=== PATIENT | male | born 1960 | race Caucasian/White ===

== ENCOUNTER 2021-05-19 17:29 | Emergency (ER) | payer MEDICAID ==
[~2021-05-19] VITALS: Ht 162.6 cm; Wt 79.4 kg
[2021-05-19 17:38] VITALS: BP 125/76
--- NOTE | 2021-05-19 17:40 | NUR ---
Pt ambulated to bed 12 with steady/even gait.
--- NOTE | 2021-05-19 17:41 | NUR ---
61 y/o M ALINA from [facility] c/o chest pain x 1 week. Patient A&Ox4, ambulatory, seen at [facility] recently for similar episodes and discharged home to monitor. Pt states 7/10, pressure/intermittent pain to left-side of chest and epigastric region per EMS. Pt states SOB at this time, SpO2 97% on room air. Patient unable to verbalize what was completed at [facility] upon discharge 2 days ago. Denies headache, N/V/D, headache, blurry vision. Pt placed onto monitoring manager. Bed locked in lowest position, side rails x 2. Pt full code. Denies meds prior to arrival. PMH: schizophrenia, HTN Meds: amlodipine, "saphris" NKDA
--- NOTE | 2021-05-19 18:05 | NUR ---
Dr. Hawkins is evaluating patient at bedside
--- NOTE | 2021-05-19 18:11 | NUR ---
Lab at bedside
--- NOTE | 2021-05-19 18:45 | NUR ---
Patient calling for nurse and states feeling SOB. SpO2 98% on room air. All pt needs met.
[2021-05-19 18:51] LABS: BASOPHILS % (AUTO) 0.7 % (0.0-2.0); EOSINOPHILS # (AUTO) 0.1 K/uL (0-0.4); EOSINOPHILS % (AUTO) 1.8 % (0.0-4.0); HEMATOCRIT 37.3 % (36-52); LYMPHOCYTES # (AUTO) 1.4 K/uL (2.0-11.5); MEAN CORPUSCULAR HEMOGLOBIN 32 pg (27-31); MEAN CORPUSCULAR HGB CONC 35 g/dL (33-37); MEAN CORPUSCULAR VOLUME 92.1 fL (80-94); MONOCYTES # (AUTO) 0.4 K/uL (0.8-1.0); NEUTROPHILS # (AUTO) 3.5 K/uL (1.8-7.7); NEUTROPHILS % (AUTO) 63.5 % (42.2-75.2); PLATELET COUNT (AUTO) 153 K/uL (140-450); RED BLOOD CELL COUNT(AUTO) 4.05 MIL/uL (4.20-6.10); RED CELL DISTRIBUTION WIDTH 13.8 % (11.6-13.7); WHITE BLOOD COUNT (AUTO) 5.5 K/uL (4.8-10.8)
[2021-05-19 19:09] LABS: ALBUMIN 3.9 g/dL (3.4-5.0); ANION GAP 10.1 (8-16); CREATININE 0.7 mg/dL (0.6-1.3); POTASSIUM 3.1 mmol/L (3.5-5.1); TOTAL BILIRUBIN 0.6 mg/dL (0.0-1.0)
--- NOTE | 2021-05-19 19:12 | NUR ---
Patient requesting for a sitter to be at bedside stating "I need someone to be with me at this time." Reassured patient will be routinely checked on. Patient states "Ok."
--- NOTE | 2021-05-19 19:28 | NUR ---
Report and transfer of care endorsed to REGINALD Richardson
--- NOTE | 2021-05-19 19:30 | NUR ---
pt is awake and alert. vss. pt is in stable condition. pt calls out for nurse and doctor often, states he is uncomfortable and wants someone to sit by him. pt reassured. all needs met at this time.
--- NOTE | 2021-05-19 20:10 | NUR ---
PT CONTINUES TO GET OUT OF BED, STATES HE JUST WANTS TO STAND FOR A MOMENT.
--- NOTE | 2021-05-19 22:08 | NUR ---
PT IS AWAKE AND ALERT, LAYING BACK IN BED. VSS. PT IS IN STABLE CONDITION, ALL NEEDS MET AT THIS TIME.
[2021-05-19] MEDS ORDERED: POTASSIUM CHLORIDE 10 MEQ TABER PO ONE (23:20)
--- NOTE | 2021-05-20 01:38 | NUR ---
PT APPEARS TO BE SLEEPING, EYES ARE CLOSED, OPENS TO SOUNDS. EQUAL RISE AND FALL OF CHEST WALL. VSS. PT IS IN STABLE CONDITION. BED LOCKED IN LOWEST POSITION, SIDE RAILS X2.
--- NOTE | 2021-05-20 06:27 | NUR ---
PT GIVEN URINAL.
--- NOTE | 2021-05-20 07:17 | NUR ---
REPORT GIVEN TO REGINALD DANG. TRANSFER OF CARE AT THIS TIME.
--- NOTE | 2021-05-20 07:17 | NUR ---
REPORT RECEIVED FROM JAYLA MONTELONGO FOR CONTINUITY OF CARE.
--- NOTE | 2021-05-20 07:17 | NUR ---
REPORT RECEIVED FROM JAYLA MONTELONGO FOR CONTINUITY OF CARE.
--- NOTE | 2021-05-20 07:35 | NUR ---
Pt report given to DEBORAH MONTELONGO. Transfer of care at this time.
--- NOTE | 2021-05-20 09:49 | NUR ---
PT AMBULATED TO RESTROOM, STEADY GAIT
--- NOTE | 2021-05-20 09:52 | NUR ---
CALLED [facility], SPOKE WITH ANGELIQUE MADE AWARE PT WILL BE DISCHARGED TO BE FACILITY.
[2021-05-20 09:56] VITALS: BP 111/80
--- NOTE | 2021-05-20 09:56 | NUR ---
Patient discharged with v/s stable. Written and verbal after care instructions given and explained. Patient alert, oriented and verbalized understanding of instructions. Ambulance Transport with to shelter. All questions addressed prior to discharge. ID band removed. Patient advised to follow up with PMD. Opportunity to ask questions provided and answered.
== END 2021-05-20 09:56 | disposition home or self-care (01) ==
LOC: MED 17:29
DX: R07.89 Other chest pain (principal); E87.6 Hypokalemia; I10 Essential (primary) hypertension; F20.9 Schizophrenia, unspecified
CPT/HCPCS: 36415; 71045; 80053; 84484; 85025; 93005; 99285; Q0092

== ENCOUNTER 2021-06-10 16:07 | Emergency (ER) | payer MEDICAID ==
[~2021-06-10] VITALS: Ht 167.6 cm; Wt 73.9 kg
[2021-06-10 17:05] VITALS: BP 141/82
[2021-06-10 18:55] LABS: BASOPHILS % (AUTO) 0.7 % (0.0-2.0); EOSINOPHILS % (AUTO) 0.8 % (0.0-4.0); HEMATOCRIT 39.5 % (36-52); HEMOGLOBIN 13.6 g/dL (12.0-18.0); LYMPHOCYTES # (AUTO) 0.4 K/uL (2.0-11.5); LYMPHOCYTES % (AUTO) 6.7 % (20.5-51.1); MEAN CORPUSCULAR HEMOGLOBIN 32 pg (27-31); MEAN CORPUSCULAR HGB CONC 35 g/dL (33-37); MEAN CORPUSCULAR VOLUME 93.4 fL (80-94); MONOCYTES # (AUTO) 0.5 K/uL (0.8-1.0); MONOCYTES % (AUTO) 8.2 % (1.7-9.3); NEUTROPHILS # (AUTO) 4.9 K/uL (1.8-7.7); NEUTROPHILS % (AUTO) 83.6 % (42.2-75.2); PLATELET COUNT (AUTO) 142 K/uL (140-450); RED BLOOD CELL COUNT(AUTO) 4.23 MIL/uL (4.20-6.10); RED CELL DISTRIBUTION WIDTH 14.6 % (11.6-13.7); WHITE BLOOD COUNT (AUTO) 5.9 K/uL (4.8-10.8)
[2021-06-10 19:06] LABS: ANION GAP 12.7 (8-16); CARBON DIOXIDE 27.6 mmol/L (21-32); CREATININE 0.7 mg/dL (0.6-1.3); POTASSIUM 3.3 mmol/L (3.5-5.1)
[2021-06-10] MEDS ORDERED: POTASSIUM CHLORIDE 20% 40 MEQ/15 ML UDC PO SCH (19:30)
[2021-06-10 21:34] VITALS: BP 141/82
--- NOTE | 2021-06-10 21:34 | NUR ---
Patient discharged with v/s stable. Written and verbal after care instructions given and explained. Patient verbalized understanding. Ambulatory with steady gait. All questions addressed prior to discharge. Advised to follow up with PMD.
== END 2021-06-10 21:34 ==
LOC: MED 16:07
DX: R42 Dizziness and giddiness (principal); R07.9 Chest pain, unspecified; I10 Essential (primary) hypertension
CPT/HCPCS: 36415; 71045; 80048; 83880; 84484; 85025; 93005; 99285

== ENCOUNTER 2021-06-21 00:22 | Emergency (ER) | payer MEDICAID ==
[~2021-06-21] VITALS: Ht 167.6 cm; Wt 68.0 kg
[2021-06-21 00:29] VITALS: BP 116/79
--- NOTE | 2021-06-21 00:31 | NUR ---
PT SENT TO LOBBY TO WAIT FOR MSE.
[2021-06-21] MEDS ORDERED: LORazepam 1 MG TAB PO ONE (01:10)
--- NOTE | 2021-06-21 01:12 | NUR ---
PT ALINA FROM [facility] FOR ANXIETY AND PT C/O SOB SINCE THIS AM. PT HAS NO SIGNS OF RESPIRATORY DISTRESS AT THIS TIME. PT STATES "I CAN'T BREATHE." O2 SATURATION IS 98% ON ROOM AIR. RR 18 REGULAR, NON LABORED.
[2021-06-21 01:28] LABS: BASOPHILS % (AUTO) 0.3 % (0.0-2.0); EOSINOPHILS % (AUTO) 0.1 % (0.0-4.0); HEMATOCRIT 36.8 % (36-52); HEMOGLOBIN 12.9 g/dL (12.0-18.0); LYMPHOCYTES % (AUTO) 25.9 % (20.5-51.1); MEAN CORPUSCULAR HEMOGLOBIN 32 pg (27-31); MEAN CORPUSCULAR HGB CONC 35 g/dL (33-37); MEAN CORPUSCULAR VOLUME 91.6 fL (80-94); MONOCYTES # (AUTO) 0.3 K/uL (0.8-1.0); MONOCYTES % (AUTO) 7.6 % (1.7-9.3); NEUTROPHILS # (AUTO) 2.7 K/uL (1.8-7.7); NEUTROPHILS % (AUTO) 66.1 % (42.2-75.2); PLATELET COUNT (AUTO) 148 K/uL (140-450); RED BLOOD CELL COUNT(AUTO) 4.02 MIL/uL (4.20-6.10)
--- NOTE | 2021-06-21 01:37 | NUR ---
PT RETURN FROM RAD TO ER [facility]
--- NOTE | 2021-06-21 01:37 | NUR ---
Lobo shabazz in [facility] - 06/21/21 at 0137 by EDI PT RETURN FROM CT TO ER [facility]
[2021-06-21 02:28] LABS: ALBUMIN 3.5 g/dL (3.4-5.0); ANION GAP 13.4 (8-16); CARBON DIOXIDE 28.7 mmol/L (21-32); CREATININE 0.9 mg/dL (0.6-1.3); POTASSIUM 3.1 mmol/L (3.5-5.1); TOTAL BILIRUBIN 1.5 mg/dL (0.0-1.0)
[2021-06-21] MEDS ORDERED: POTASSIUM CHLORIDE 10 MEQ TABER PO ONE ×2 (03:00→04:08)
--- NOTE | 2021-06-21 05:13 | NUR ---
Patient discharged with v/s stable. Written and verbal after care instructions given and explained. Patient alert, oriented and verbalized understanding of instructions. Ambulatory with steady gait. All questions addressed prior to discharge. ID band removed. Patient advised to follow up with PMD. NO Rx given. Patient educated on indication of medication including possible reaction and side effects. Opportunity to ask questions provided and answered. REPORT GIVEN TO SRINIVASA. PT SENT BACK IN [facility]
[2021-06-21 05:16] VITALS: BP 111/72
== END 2021-06-21 05:13 | disposition home or self-care (01) ==
LOC: MED 00:22
DX: E87.6 Hypokalemia (principal); F41.9 Anxiety disorder, unspecified; F20.9 Schizophrenia, unspecified; I10 Essential (primary) hypertension
CPT/HCPCS: 36415; 71045; 80053; 83880; 84484; 85025; 93005; 99285

== ENCOUNTER 2021-07-04 16:34 | Emergency (ER) | payer MEDICAID ==
[~2021-07-04] VITALS: Ht 165.1 cm; Wt 67.1 kg
[2021-07-04 16:42] VITALS: BP 123/80
--- NOTE | 2021-07-04 17:00 | NUR ---
PATIENT AMBULATED TO BED 10.
--- NOTE | 2021-07-04 17:08 | NUR ---
COVID SELENA SWAB DONE.
--- NOTE | 2021-07-04 17:11 | NUR ---
LAB AT PATIENT BEDSIDE
--- NOTE | 2021-07-04 17:19 | NUR ---
61Y MALE BIB SELF FROM [facility] WITH C/O LEFT CHEST PAIN X2 DAYS. PT WAS LAST SEEN HERE 06/21/21 FOR SOB, PANIC ATTACK. PT STATED THE CHEST PAIN RADIATES ONLY TO HIS LEFT SHOULDER. PT DENIES ANY TINGLING/PAIN IN HIS ARMS/NECK. PT CURRENTLY A&OX4, WITH NO SIGNS OF DISTRESS. PT PLACED ON BANKING PIN ADJUSTER BEDSIDE AND PUT INTO GOWN. PT DENIES ANY SOB, FEVER/CHILLS, N/V PMH: SCHIZOPHRENIA, HTN NKA
--- NOTE | 2021-07-04 17:20 | NUR ---
XRAY AT PATIENT BEDSIDE
[2021-07-04 17:29] LABS: BASOPHILS # (AUTO) 0.1 K/uL (0.00-0.22); BASOPHILS % (AUTO) 1.1 % (0.0-2.0); EOSINOPHILS % (AUTO) 0.9 % (0.0-4.0); HEMATOCRIT 38.1 % (36-52); HEMOGLOBIN 13.1 g/dL (12.0-18.0); LYMPHOCYTES # (AUTO) 1.5 K/uL (2.0-11.5); MEAN CORPUSCULAR HEMOGLOBIN 32 pg (27-31); MEAN CORPUSCULAR HGB CONC 34 g/dL (33-37); MEAN CORPUSCULAR VOLUME 93.9 fL (80-94); MONOCYTES # (AUTO) 0.4 K/uL (0.8-1.0); NEUTROPHILS # (AUTO) 2.9 K/uL (1.8-7.7); PLATELET COUNT (AUTO) 195 K/uL (140-450); RED BLOOD CELL COUNT(AUTO) 4.05 MIL/uL (4.20-6.10); RED CELL DISTRIBUTION WIDTH 14.3 % (11.6-13.7); WHITE BLOOD COUNT (AUTO) 4.9 K/uL (4.8-10.8)
[2021-07-04] MEDS ORDERED: NACL 0.9% 1,000 ML IV ONE (17:50)
[2021-07-04 18:02] LABS: ALBUMIN 3.8 g/dL (3.4-5.0); ANION GAP 14.3 (8-16); CARBON DIOXIDE 29.1 mmol/L (21-32); CREATININE 0.7 mg/dL (0.6-1.3); POTASSIUM 3.4 mmol/L (3.5-5.1); TOTAL BILIRUBIN 1.1 mg/dL (0.0-1.0)
--- NOTE | 2021-07-04 18:24 | NUR ---
Patient appears to be resting comfortably in bed. Vital Signs within normal limits. Respirations even and unlabored. BED IN LOWEST POSITION AND LOCKED. SIDERAIL X2 UP
--- NOTE | 2021-07-04 19:21 | NUR ---
Pt report given to REGINALD RUSSELL. Transfer of care at this time.
--- NOTE | 2021-07-04 19:21 | NUR ---
Received report from Marce MONTELONGO for continuation of care
--- NOTE | 2021-07-04 20:20 | NUR ---
called taxi for patient.
--- NOTE | 2021-07-04 20:37 | NUR ---
called for taxi and was told to wait about 45minutes.
--- NOTE | 2021-07-04 20:39 | NUR ---
called [facility] about patient. spoke with roberto the receptionist scheduler.
--- NOTE | 2021-07-04 20:52 | NUR ---
IV removed, catheter intact and site benign. Applied folded 4x4 gauze and tape to stop bleeding.
[2021-07-04 20:56] VITALS: BP 119/74
--- NOTE | 2021-07-04 20:56 | NUR ---
Patient discharged with v/s stable. Written and verbal after care instructions given and explained. Patient verbalized understanding. Ambulatory with steady gait. ID band removed. All questions addressed prior to discharge. Advised to follow up with PMD.
== END 2021-07-04 20:56 | disposition home or self-care (01) ==
LOC: MED 16:34
DX: R53.1 Weakness (principal); R42 Dizziness and giddiness; M79.10 Myalgia, unspecified site; Z20.822 Contact with and (suspected) exposure to COVID-19; I10 Essential (primary) hypertension; F20.9 Schizophrenia, unspecified
CPT/HCPCS: 36415; 71045; 80053; 83690; 84484; 85025; 87426; 93005; 96360; 99285; J7030; Q0092

== ENCOUNTER 2021-07-09 12:45 | Emergency (ER) | payer MEDICAID ==
[~2021-07-09] VITALS: Ht 132.1 cm; Wt 63.5 kg
[2021-07-09 12:53] VITALS: BP 121/75
--- NOTE | 2021-07-09 12:58 | NUR ---
pt amb to bed 4.
--- NOTE | 2021-07-09 13:02 | NUR ---
EKG AT BEDSIDE
--- NOTE | 2021-07-09 13:03 | NUR ---
BIB SELF FROM [facility] c/o 12/10 LEFT chest pain, subjective fever x 5 days. covid tested negative 07/04/21. pmh: htn
--- NOTE | 2021-07-09 13:07 | NUR ---
EKG DONE AND RESULTS HANDED TO DAWIT SIN
[2021-07-09] MEDS ORDERED: ACETAMINOPHEN EXTRA STRENGTH 500 MG TAB PO ONE (13:15)
[2021-07-09 13:45] LABS: BASOPHILS % (AUTO) 1.3 % (0.0-2.0); EOSINOPHILS % (AUTO) 0.3 % (0.0-4.0); HEMATOCRIT 35.4 % (36-52); HEMOGLOBIN 12.1 g/dL (12.0-18.0); LYMPHOCYTES # (AUTO) 1.1 K/uL (2.0-11.5); LYMPHOCYTES % (AUTO) 29.9 % (20.5-51.1); MEAN CORPUSCULAR HEMOGLOBIN 32 pg (27-31); MEAN CORPUSCULAR HGB CONC 34 g/dL (33-37); MEAN CORPUSCULAR VOLUME 93.5 fL (80-94); MONOCYTES # (AUTO) 0.3 K/uL (0.8-1.0); MONOCYTES % (AUTO) 7.3 % (1.7-9.3); NEUTROPHILS # (AUTO) 2.2 K/uL (1.8-7.7); NEUTROPHILS % (AUTO) 61.2 % (42.2-75.2); PLATELET COUNT (AUTO) 152 K/uL (140-450); RED BLOOD CELL COUNT(AUTO) 3.79 MIL/uL (4.20-6.10); RED CELL DISTRIBUTION WIDTH 14.8 % (11.6-13.7); WHITE BLOOD COUNT (AUTO) 3.7 K/uL (4.8-10.8)
[2021-07-09 14:06] LABS: ALBUMIN 3.3 g/dL (3.4-5.0); ANION GAP 13.5 (8-16); CARBON DIOXIDE 27.3 mmol/L (21-32); CREATININE 0.8 mg/dL (0.6-1.3); POTASSIUM 3.8 mmol/L (3.5-5.1); TOTAL BILIRUBIN 0.7 mg/dL (0.0-1.0)
[2021-07-09 15:39] VITALS: BP 127/81
== END 2021-07-09 15:39 | disposition home or self-care (01) ==
LOC: MED 12:45
DX: R07.89 Other chest pain (principal); Z20.822 Contact with and (suspected) exposure to COVID-19; I10 Essential (primary) hypertension
CPT/HCPCS: 36415; 71045; 80053; 82553; 84484; 85025; 87426; 87804; 93005; 99285; Q0092